=== PATIENT | male | born 1955 | race Caucasian/White ===

== ENCOUNTER 2020-12-21 11:40 | Inpatient (IN) ==
[2020-12-21] MEDS ORDERED: Ampicillin/Sulbactam 3,000 MG in 0.9 % Sodium Chloride Mini Bag 100 ML IVPB ONE (12:32)
[2020-12-21 13:18] LABS: Basophils % 0.6 %; Eosinophils # 0.4 K/mcL (0.0-0.6); Eosinophils % 5.3 %; Hematocrit 33.9 % (37.5-50.1); Hemoglobin 11.6 g/dL (12.9-16.9); Immature Granulocytes % 0.3 % (0-4); Lymphocytes # 1.1 K/mcL (0.6-4.6); Lymphocytes % 16.2 %; Mean Corpuscular HGB Conc 34.2 g/dL (31.6-35.5); Mean Corpuscular Volume 90.6 fL (83.0-100.0); Mean Platelet Volume 11.7 fL (9.4-12.4); Monocytes # 0.8 K/mcL (0.0-1.3); Monocytes % 11.8 %; Neutrophils # 4.5 K/mcL (1.6-8.9); Platelet Count 153 K/mcL (140-400); Red Blood Count 3.74 M/mcL (4.19-5.50); Red Cell Distribution Width 13.8 % (11.5-14.5); Segmented Neutrophils % 65.8 %; White Blood Count 6.8 K/mcL (4.3-11.1)
[2020-12-21 13:28] LABS: INR 1.3; Prothrombin Time 14.1 Seconds (9.4-12.1)
[2020-12-21 13:31] LABS: Activated Partial Thrombo Time 39.3 Seconds (26.0-36.0)
[2020-12-21 13:45] LABS: BUN/Creatinine Ratio 14 (6-26); Blood Urea Nitrogen 10 mg/dL (8-23); C-Reactive Protein 63 mg/L (Less than 10); Calcium 8.8 mg/dL (8.6-10.3); Carbon Dioxide 22 mEq/L (23-29); Chloride 101 mEq/L (98-107); Glucose 111 mg/dL (70-105); Osmolality,Calculated 278 (280-300); Sodium 134 mEq/L (136-145); eGFR For African Americans > 60 (> 60); eGFR For Non-African Americans > 60 (> 60)
[2020-12-21] MEDS ORDERED: Ondansetron 4 MG/2 ML VIAL IVP PRN (14:23)
[2020-12-21] MEDS ORDERED: Naloxone 0.4 MG/ML INJ IVP PRN (14:23)
[2020-12-21] MEDS ORDERED: *HR* Dextrose 50 % in Water (Syg) 50 ML SYRINGE IVP PRN (14:25)
[2020-12-21] MEDS ORDERED: Dextrose Gel 15 GM/37.5 ML TUBE PO PRN ×2 (14:25)
[2020-12-21] MEDS ORDERED: D5% in Water 1,000 ML IVC PRN (14:25)
[2020-12-21] MEDS ORDERED: 0.9 % Sodium Chloride 1,000 ML IVC SCH (14:30)
[2020-12-21] MEDS: Insulin LISPRO 300 UNITS/3 ML VIAL SUBQ SCH (17:09)
[2020-12-21] MEDS: Ampicillin/Sulbactam 3,000 MG in 0.9 % Sodium Chloride Mini Bag 100 ML IVPB SCH ×2 (17:09→23:59)
[2020-12-21] MEDS ORDERED: Insulin LISPRO 300 UNITS/3 ML VIAL SUBQ SCH (21:00)
[2020-12-21] MEDS: Melatonin 3 MG TABLET PO SCH (21:17)
[2020-12-21] MEDS: Spironolactone 12.5 MG TABLET PO SCH (21:17)
[2020-12-21] MEDS: *HR* Heparin 5,000 UNIT/ML VIAL SQ SCH (21:17)
[2020-12-21] MEDS: *HR* HYDROcodone/Acet 5/325 mg TABLET PO PRN (21:17)
[2020-12-22 05:26] LABS: Basophils # 0.1 K/mcL (0.0-0.2); Eosinophils # 0.4 K/mcL (0.0-0.6); Eosinophils % 7.8 %; Hematocrit 32.7 % (37.5-50.1); Hemoglobin 10.9 g/dL (12.9-16.9); Immature Granulocytes % 0.2 % (0-4); Lymphocytes # 1.2 K/mcL (0.6-4.6); Lymphocytes % 23.2 %; Mean Corpuscular HGB Conc 33.3 g/dL (31.6-35.5); Mean Corpuscular Hemoglobin 31.2 pg (28.0-33.3); Mean Corpuscular Volume 93.7 fL (83.0-100.0); Mean Platelet Volume 11.5 fL (9.4-12.4); Monocytes # 0.7 K/mcL (0.0-1.3); Monocytes % 12.9 %; Neutrophils # 2.8 K/mcL (1.6-8.9); Platelet Count 140 K/mcL (140-400); Red Blood Count 3.49 M/mcL (4.19-5.50); Red Cell Distribution Width 13.9 % (11.5-14.5); Segmented Neutrophils % 54.9 %; White Blood Count 5.1 K/mcL (4.3-11.1)
[2020-12-22] MEDS: Ampicillin/Sulbactam 3,000 MG in 0.9 % Sodium Chloride Mini Bag 100 ML IVPB SCH ×4 (05:45→23:15)
[2020-12-22] MEDS: *HR* Heparin 5,000 UNIT/ML VIAL SQ SCH ×3 (05:46→22:12)
[2020-12-22 05:48] LABS: Alanine Aminotransferase 22 Units/L (7-52); Albumin 2.9 g/dL (3.5-5.7); Albumin/Globulin Ratio 0.9 (1.1-2.2); Alkaline Phosphatase 128 Units/L (34-104); Aspartate Amino Transferase 41 Units/L (13-39); BUN/Creatinine Ratio 17 (6-26); Bilirubin,Total 1.9 mg/dL (0.3-1.0); Blood Urea Nitrogen 12 mg/dL (8-23); Calcium 8.3 mg/dL (8.6-10.3); Carbon Dioxide 24 mEq/L (23-29); Chloride 105 mEq/L (98-107); Globulin 3.2 g/dL (2.4-3.5); Glucose 61 mg/dL (70-105); Osmolality,Calculated 280 (280-300); Potassium 3.6 mEq/L (3.5-5.1); Sodium 136 mEq/L (136-145); Total Protein 6.1 g/dL (6.4-8.9); eGFR For African Americans > 60 (> 60); eGFR For Non-African Americans > 60 (> 60)
[2020-12-22] MEDS: Insulin LISPRO 300 UNITS/3 ML VIAL SUBQ SCH (08:53)
[2020-12-22] MEDS: Spironolactone 12.5 MG TABLET PO SCH ×2 (08:53→22:12)
[2020-12-22] MEDS: Cholecalciferol (D-3) 1,000 UNIT (25MCG) TABLET PO SCH (08:53)
[2020-12-22] MEDS ORDERED: *HR* LORazepam 2 MG/ML VIAL IVP PRN ×3 (09:28)
[2020-12-22] MEDS ORDERED: Ondansetron 4 MG/2 ML VIAL ONE (12:17)
[2020-12-22] MEDS ORDERED: Lidocaine -MPF 2% 5 ML VIAL ONE (12:17)
[2020-12-22] MEDS ORDERED: *HR* FentaNYL (PF) 100 MCG/2 ML VIAL ONE (12:17)
[2020-12-22] MEDS ORDERED: *HR* Midazolam HCl 2 MG/2 ML VIAL ONE (12:18)
[2020-12-22] MEDS ORDERED: *HR* Propofol 200 MG/20 ML VIAL IVP ONE (12:18)
[2020-12-22] MEDS ORDERED: Lidocaine/EPI 1:100k 1% 20 ML VIAL ONE (13:26)
[2020-12-22] MEDS ORDERED: Ethanol\\Acetic Acid\\Na Ace\\Ben 1,000 ML IRRIG.SOLN IR ONE (13:27)
[2020-12-22] MEDS ORDERED: Ringers Solution, Lactated 1,000 ML IVC SCH (13:45)
[2020-12-22] MEDS ORDERED: Ondansetron 4 MG/2 ML VIAL IVP PRN (15:29)
[2020-12-22] MEDS ORDERED: *HR* HYDROmorphone PF 0.5 MG/0.5 ML SYRINGE IVP PRN (15:29)
[2020-12-22] MEDS ORDERED: *HR* OxyCODONE Immed Rel 5 MG TABLET PO PRN (15:29)
[2020-12-22] MEDS: Thiamine (B-1) 100 MG, Folic Acid 1 MG, MVI, adult with vitamin K 10 ML in 0.9 % Sodi... IVPB SCH (17:17)
[2020-12-22] MEDS: *HR* HYDROcodone/Acet 5/325 mg TABLET PO PRN (18:17)
[2020-12-22] MEDS: Melatonin 3 MG TABLET PO SCH (22:12)
[2020-12-23] MEDS: *HR* HYDROcodone/Acet 5/325 mg TABLET PO PRN ×3 (00:20→22:40)
[2020-12-23 03:47] LABS: Alanine Aminotransferase 19 Units/L (7-52); Albumin 2.9 g/dL (3.5-5.7); Albumin/Globulin Ratio 0.9 (1.1-2.2); Alkaline Phosphatase 119 Units/L (34-104); Aspartate Amino Transferase 36 Units/L (13-39); BUN/Creatinine Ratio 26 (6-26); Bilirubin,Total 1.7 mg/dL (0.3-1.0); Blood Urea Nitrogen 23 mg/dL (8-23); Calcium 8.1 mg/dL (8.6-10.3); Carbon Dioxide 22 mEq/L (23-29); Chloride 101 mEq/L (98-107); Globulin 3.3 g/dL (2.4-3.5); Glucose 312 mg/dL (70-105); Magnesium 1.2 mg/dL (1.6-2.6); Osmolality,Calculated 286 (280-300); Potassium 4.8 mEq/L (3.5-5.1); Sodium 130 mEq/L (136-145); Total Protein 6.2 g/dL (6.4-8.9); eGFR For African Americans > 60 (> 60); eGFR For Non-African Americans > 60 (> 60)
[2020-12-23] MEDS: *HR* Heparin 5,000 UNIT/ML VIAL SQ SCH ×3 (05:59→22:42)
[2020-12-23] MEDS: Ampicillin/Sulbactam 3,000 MG in 0.9 % Sodium Chloride Mini Bag 100 ML IVPB SCH ×3 (05:59→16:03)
[2020-12-23] MEDS: Magnesium Oxide 400 MG TABLET PO SCH (09:26)
[2020-12-23] MEDS: Cholecalciferol (D-3) 1,000 UNIT (25MCG) TABLET PO SCH (09:26)
[2020-12-23] MEDS: Spironolactone 12.5 MG TABLET PO SCH ×2 (09:26→22:41)
[2020-12-23] MEDS: Insulin DETEMIR 100 UNIT/ML X5UNITS SUBQ SCH ×2 (09:27→22:50)
[2020-12-23] MEDS: MetroNIDAZOLE 500 MG/100 ML 500 MG/100 ML BAG IVPB SCH (18:51)
[2020-12-23] MEDS: Thiamine (B-1) 100 MG, Folic Acid 1 MG, MVI, adult with vitamin K 10 ML in 0.9 % Sodi... IVPB SCH (19:41)
[2020-12-23] MEDS: Melatonin 3 MG TABLET PO SCH (22:41)
[2020-12-24] MEDS: Ampicillin/Sulbactam 3,000 MG in 0.9 % Sodium Chloride Mini Bag 100 ML IVPB SCH ×4 (02:13→16:48)
[2020-12-24] MEDS: MetroNIDAZOLE 500 MG/100 ML 500 MG/100 ML BAG IVPB SCH ×3 (02:14→15:26)
[2020-12-24 05:27] LABS: Alanine Aminotransferase 19 Units/L (7-52); Albumin 3.2 g/dL (3.5-5.7); Alkaline Phosphatase 115 Units/L (34-104); Aspartate Amino Transferase 34 Units/L (13-39); BUN/Creatinine Ratio 26 (6-26); Bilirubin,Total 1.3 mg/dL (0.3-1.0); Blood Urea Nitrogen 23 mg/dL (8-23); Calcium 8.8 mg/dL (8.6-10.3); Carbon Dioxide 23 mEq/L (23-29); Chloride 105 mEq/L (98-107); Globulin 3.2 g/dL (2.4-3.5); Glucose 53 mg/dL (70-105); Magnesium 1.4 mg/dL (1.6-2.6); Osmolality,Calculated 281 (280-300); Potassium 3.9 mEq/L (3.5-5.1); Sodium 135 mEq/L (136-145); Total Protein 6.4 g/dL (6.4-8.9); eGFR For African Americans > 60 (> 60); eGFR For Non-African Americans > 60 (> 60)
[2020-12-24] MEDS: *HR* Heparin 5,000 UNIT/ML VIAL SQ SCH ×3 (06:21→22:10)
[2020-12-24 06:31] LABS: Basophils % 0.5 %; Eosinophils # 0.2 K/mcL (0.0-0.6); Hematocrit 31.3 % (37.5-50.1); Hemoglobin 10.5 g/dL (12.9-16.9); Immature Granulocytes % 0.5 % (0-4); Lymphocytes # 1.5 K/mcL (0.6-4.6); Lymphocytes % 26.3 %; Mean Corpuscular HGB Conc 33.5 g/dL (31.6-35.5); Mean Corpuscular Hemoglobin 31.2 pg (28.0-33.3); Mean Corpuscular Volume 92.9 fL (83.0-100.0); Mean Platelet Volume 10.1 fL (9.4-12.4); Monocytes # 0.6 K/mcL (0.0-1.3); Monocytes % 10.6 %; Neutrophils # 3.4 K/mcL (1.6-8.9); Platelet Count 154 K/mcL (140-400); Red Blood Count 3.37 M/mcL (4.19-5.50); Red Cell Distribution Width 13.9 % (11.5-14.5); Segmented Neutrophils % 59.1 %; White Blood Count 5.7 K/mcL (4.3-11.1)
[2020-12-24] MEDS: Spironolactone 12.5 MG TABLET PO SCH ×2 (08:11→22:09)
[2020-12-24] MEDS: Insulin DETEMIR 100 UNIT/ML X5UNITS SUBQ SCH ×2 (08:11→22:10)
[2020-12-24] MEDS: Magnesium Oxide 400 MG TABLET PO SCH (08:12)
[2020-12-24] MEDS: Cholecalciferol (D-3) 1,000 UNIT (25MCG) TABLET PO SCH (08:12)
[2020-12-24] MEDS: *HR* HYDROcodone/Acet 5/325 mg TABLET PO PRN ×3 (08:34→22:18)
[2020-12-24] MEDS: Thiamine (B-1) 100 MG, Folic Acid 1 MG, MVI, adult with vitamin K 10 ML in 0.9 % Sodi... IVPB SCH (18:52)
[2020-12-24] MEDS: Melatonin 3 MG TABLET PO SCH (22:09)
[2020-12-25] MEDS: MetroNIDAZOLE 500 MG/100 ML 500 MG/100 ML BAG IVPB SCH ×4 (00:53→21:57)
[2020-12-25] MEDS: Ampicillin/Sulbactam 3,000 MG in 0.9 % Sodium Chloride Mini Bag 100 ML IVPB SCH ×5 (00:53→23:15)
[2020-12-25 04:21] LABS: Basophils % 0.6 %; Eosinophils # 0.3 K/mcL (0.0-0.6); Eosinophils % 5.1 %; Hematocrit 31.7 % (37.5-50.1); Hemoglobin 10.4 g/dL (12.9-16.9); Immature Granulocytes % 0.4 % (0-4); Lymphocytes # 1.5 K/mcL (0.6-4.6); Lymphocytes % 27.9 %; Mean Corpuscular HGB Conc 32.8 g/dL (31.6-35.5); Mean Corpuscular Hemoglobin 30.6 pg (28.0-33.3); Mean Corpuscular Volume 93.2 fL (83.0-100.0); Mean Platelet Volume 10.4 fL (9.4-12.4); Monocytes # 0.6 K/mcL (0.0-1.3); Neutrophils # 2.9 K/mcL (1.6-8.9); Platelet Count 170 K/mcL (140-400); Red Cell Distribution Width 14.1 % (11.5-14.5); White Blood Count 5.3 K/mcL (4.3-11.1)
[2020-12-25 05:26] LABS: Alanine Aminotransferase 24 Units/L (7-52); Albumin 3.1 g/dL (3.5-5.7); Albumin/Globulin Ratio 0.9 (1.1-2.2); Alkaline Phosphatase 117 Units/L (34-104); Aspartate Amino Transferase 45 Units/L (13-39); BUN/Creatinine Ratio 24 (6-26); Bilirubin,Total 1.3 mg/dL (0.3-1.0); Blood Urea Nitrogen 18 mg/dL (8-23); Calcium 8.9 mg/dL (8.6-10.3); Carbon Dioxide 25 mEq/L (23-29); Chloride 105 mEq/L (98-107); Globulin 3.3 g/dL (2.4-3.5); Glucose 62 mg/dL (70-105); Magnesium 1.3 mg/dL (1.6-2.6); Osmolality,Calculated 286 (280-300); Potassium 4.1 mEq/L (3.5-5.1); Sodium 138 mEq/L (136-145); Total Protein 6.4 g/dL (6.4-8.9); eGFR For African Americans > 60 (> 60); eGFR For Non-African Americans > 60 (> 60)
[2020-12-25] MEDS: *HR* HYDROcodone/Acet 5/325 mg TABLET PO PRN ×3 (06:17→22:03)
[2020-12-25] MEDS: *HR* Heparin 5,000 UNIT/ML VIAL SQ SCH ×3 (06:18→21:57)
[2020-12-25] MEDS: Cholecalciferol (D-3) 1,000 UNIT (25MCG) TABLET PO SCH (09:57)
[2020-12-25] MEDS: Magnesium Oxide 400 MG TABLET PO SCH (09:57)
[2020-12-25] MEDS: Spironolactone 12.5 MG TABLET PO SCH ×2 (09:58→21:56)
[2020-12-25] MEDS: Insulin DETEMIR 100 UNIT/ML X5UNITS SUBQ SCH ×2 (10:00→21:57)
[2020-12-25] MEDS: Melatonin 3 MG TABLET PO SCH (21:56)
[2020-12-26] MEDS: MetroNIDAZOLE 500 MG/100 ML 500 MG/100 ML BAG IVPB SCH ×2 (04:50→12:49)
[2020-12-26 06:06] LABS: Alanine Aminotransferase 20 Units/L (7-52); Albumin 2.9 g/dL (3.5-5.7); Alkaline Phosphatase 106 Units/L (34-104); Aspartate Amino Transferase 37 Units/L (13-39); BUN/Creatinine Ratio 31 (6-26); Bilirubin,Total 1.2 mg/dL (0.3-1.0); Blood Urea Nitrogen 27 mg/dL (8-23); Carbon Dioxide 25 mEq/L (23-29); Chloride 103 mEq/L (98-107); Globulin 2.8 g/dL (2.4-3.5); Glucose 178 mg/dL (70-105); Magnesium 1.3 mg/dL (1.6-2.6); Osmolality,Calculated 286 (280-300); Potassium 4.8 mEq/L (3.5-5.1); Sodium 133 mEq/L (136-145); Total Protein 5.7 g/dL (6.4-8.9); eGFR For African Americans > 60 (> 60); eGFR For Non-African Americans > 60 (> 60)
[2020-12-26] MEDS: Ampicillin/Sulbactam 3,000 MG in 0.9 % Sodium Chloride Mini Bag 100 ML IVPB SCH ×2 (06:39→12:43)
[2020-12-26] MEDS: *HR* Heparin 5,000 UNIT/ML VIAL SQ SCH ×2 (06:40→15:22)
[2020-12-26] MEDS: *HR* HYDROcodone/Acet 5/325 mg TABLET PO PRN (07:09)
[2020-12-26 07:56] VITALS: O2SAT 96
[2020-12-26] MEDS: Spironolactone 12.5 MG TABLET PO SCH (08:51)
[2020-12-26] MEDS: Cholecalciferol (D-3) 1,000 UNIT (25MCG) TABLET PO SCH (08:51)
[2020-12-26] MEDS: Insulin DETEMIR 100 UNIT/ML X5UNITS SUBQ SCH (08:53)
[2020-12-26] MEDS: Magnesium Oxide 400 MG TABLET PO SCH (10:52)
[2020-12-26 11:25] VITALS: BP 128/74; PULSE 64; TEMP 98.4
== END 2020-12-26 16:40 | disposition home health service (06) | DRG 580 ==
LOC: 4WAOSI 11:40 → EMEROOARM 11:40 → SUATTDRO 14:29 → 4WAOSI 16:21 → 3NENU 12-25 10:10
PROVIDERS: ADMIT Family Medicine; ATTEND Internal Medicine

== ENCOUNTER 2021-09-28 12:06 | Inpatient (IN) ==
[2021-09-28] MEDS ORDERED: *HR* Propofol 200 MG/20 ML VIAL IVP ONE (12:17)
[2021-09-28] MEDS ORDERED: *HR* Rocuronium Bromide 50 MG/5 ML VIAL ONE ×3 (12:17→15:24)
[2021-09-28] MEDS ORDERED: Ondansetron 4 MG/2 ML VIAL ONE (12:17)
[2021-09-28] MEDS ORDERED: *HR* FentaNYL (PF) 100 MCG/2 ML VIAL ONE ×2 (12:17→14:32)
[2021-09-28] MEDS ORDERED: Lidocaine -MPF 2% 5 ML VIAL ONE (12:17)
[2021-09-28] MEDS ORDERED: CeFAZolin Syr 2,000MG/20 ML 2,000 MG/20 ML SYRINGE IVPB ONE (12:22)
[2021-09-28] MEDS ORDERED: Ringers Solution, Lactated 1,000 ML IVC SCH ×2 (12:30→17:56)
[2021-09-28] MEDS ORDERED: Lidocaine HCL 4 ML Topical Solution (Laryng-O-Jet Kit Sterile Pak) TP ONE (13:51)
[2021-09-28] MEDS ORDERED: EPHEDrine 50 MG/ML VIAL ONE (14:11)
[2021-09-28] MEDS ORDERED: Sugammadex Sodium 200 MG/2 ML VIAL IV ONE ×2 (15:46→15:58)
[2021-09-28] MEDS ORDERED: *HR* HYDROMORPHONE 2 MG/ML VIAL ONE (16:16)
[2021-09-28] MEDS: *HR* FentaNYL (PF) 100 MCG/2 ML VIAL IVP PRN ×4 (16:29→16:47)
[2021-09-28] MEDS: *HR* HYDROmorphone (PF) 1 MG/ML SYRINGE IVP PRN ×4 (16:51→17:28)
[2021-09-28] MEDS ORDERED: Acetaminophen IV 1,000 MG/100 ML BAG IVPB ONE ×2 (17:16→17:21)
[2021-09-28] MEDS ORDERED: polyethylene glycoL 3350 17 GM POWD.PACK PO PRN (17:56)
[2021-09-28] MEDS: Spironolactone 12.5 MG TABLET PO SCH (20:57)
[2021-09-28] MEDS: Melatonin 3 MG TABLET PO SCH (20:57)
[2021-09-28] MEDS: Famotidine 20 MG TABLET PO SCH (20:58)
[2021-09-28] MEDS ORDERED: NON-FORMULARY MEDICATION 1 EACH EACH (Insulin Glargine,Hum.Rec.Anlog [Lantus Solostar] 100 SQ SCH (21:00)
[2021-09-29] MEDS: *HR* Heparin 5,000 UNIT/ML VIAL SQ SCH ×4 (00:13→23:45)
[2021-09-29] MEDS: *HR* HYDROcodone/Acet 5/325 mg TABLET PO PRN ×2 (00:26→08:12)
[2021-09-29 04:44] LABS: Basophils % 0.2 %; Hematocrit 24.8 % (37.5-50.1); Hemoglobin 7.5 g/dL (12.9-16.9); Immature Granulocytes % 0.2 % (0-4); Lymphocytes # 0.5 K/mcL (0.6-4.6); Lymphocytes % 10.3 %; Mean Corpuscular HGB Conc 30.2 g/dL (31.6-35.5); Mean Corpuscular Hemoglobin 26.3 pg (28.0-33.3); Mean Platelet Volume 11.1 fL (9.4-12.4); Monocytes # 0.5 K/mcL (0.0-1.3); Monocytes % 10.5 %; Neutrophils # 3.8 K/mcL (1.6-8.9); Platelet Count 141 K/mcL (140-400); Red Blood Count 2.85 M/mcL (4.19-5.50); Red Cell Distribution Width 14.8 % (11.5-14.5); Segmented Neutrophils % 78.8 %; White Blood Count 4.9 K/mcL (4.3-11.1)
[2021-09-29] MEDS: Multivit/Ca/Min/Fe/FA 1 TAB TABLET PO SCH (08:12)
[2021-09-29] MEDS: *HR* Metformin 500 MG TABLET PO SCH ×2 (08:12→17:06)
[2021-09-29] MEDS: Aspirin Enteric Coated 81 MG Tablet PO SCH (08:13)
[2021-09-29] MEDS: Magnesium Oxide 400 MG TABLET PO SCH (08:13)
[2021-09-29] MEDS: Famotidine 20 MG TABLET PO SCH ×2 (08:13→23:41)
[2021-09-29] MEDS: Spironolactone 12.5 MG TABLET PO SCH ×2 (08:13→23:41)
[2021-09-29] MEDS ORDERED: D5% in Water 1,000 ML IVC PRN (08:24)
[2021-09-29] MEDS ORDERED: Dextrose Gel 15 GM/37.5 ML TUBE PO PRN ×2 (08:24)
[2021-09-29] MEDS ORDERED: *HR* Dextrose 50 % in Water (Syg) 50 ML SYRINGE IVP PRN (08:24)
[2021-09-29] MEDS: Insulin LISPRO 300 UNITS/3 ML VIAL SUBQ SCH ×3 (09:14→17:07)
[2021-09-29] MEDS ORDERED: *HR* LORazepam 1 MG TABLET PO PRN (09:33)
[2021-09-29 09:50] LABS: BUN/Creatinine Ratio 20 (6-26); Blood Urea Nitrogen 16 mg/dL (8-23); Calcium 8.1 mg/dL (8.6-10.3); Carbon Dioxide 25 mEq/L (23-29); Chloride 103 mEq/L (98-107); Glucose 175 mg/dL (70-105); Osmolality,Calculated 285 (280-300); Phosphorous 4.3 mg/dL (2.7-4.5); Potassium 4.1 mEq/L (3.5-5.1); Sodium 135 mEq/L (136-145); eGFR For African Americans > 60 (> 60); eGFR For Non-African Americans > 60 (> 60)
[2021-09-29 09:51] LABS: % Iron Saturation 15 % (20-55); Iron 58 mcg/dL (65-175); Transferrin 277 mg/dL (203-362)
[2021-09-29] MEDS: Gabapentin 300 MG CAPSULE PO SCH ×3 (10:34→23:41)
[2021-09-29] MEDS: Iron Sucrose Complex 400 MG in 0.9 % Sodium Chloride 250 ML IVPB SCH (12:39)
[2021-09-29] MEDS: *HR* OxyCODONE Immed Rel 5 MG TABLET PO PRN ×2 (14:48→20:42)
[2021-09-29] MEDS: Melatonin 3 MG TABLET PO SCH (23:40)
[2021-09-30 01:41] LABS: Basophils % 0.4 %; Eosinophils # 0.1 K/mcL (0.0-0.6); Eosinophils % 0.9 %; Hematocrit 25.2 % (37.5-50.1); Hemoglobin 7.9 g/dL (12.9-16.9); Immature Granulocytes % 0.4 % (0-4); Lymphocytes # 1.2 K/mcL (0.6-4.6); Lymphocytes % 15.6 %; Mean Corpuscular HGB Conc 31.3 g/dL (31.6-35.5); Mean Platelet Volume 10.7 fL (9.4-12.4); Monocytes % 13.2 %; Neutrophils # 5.3 K/mcL (1.6-8.9); Platelet Count 173 K/mcL (140-400); Red Blood Count 2.93 M/mcL (4.19-5.50); Red Cell Distribution Width 14.8 % (11.5-14.5); Segmented Neutrophils % 69.5 %
[2021-09-30] MEDS: *HR* OxyCODONE Immed Rel 5 MG TABLET PO PRN ×4 (01:55→21:27)
[2021-09-30 02:01] LABS: White Blood Count 7.6 K/mcL (4.3-11.1)
[2021-09-30 02:04] LABS: BUN/Creatinine Ratio 23 (6-26); Blood Urea Nitrogen 20 mg/dL (8-23); Calcium 8.3 mg/dL (8.6-10.3); Carbon Dioxide 23 mEq/L (23-29); Chloride 102 mEq/L (98-107); Glucose 164 mg/dL (70-105); Osmolality,Calculated 282 (280-300); Potassium 3.9 mEq/L (3.5-5.1); Sodium 133 mEq/L (136-145); eGFR For African Americans > 60 (> 60); eGFR For Non-African Americans > 60 (> 60)
[2021-09-30] MEDS: Insulin LISPRO 300 UNITS/3 ML VIAL SUBQ SCH ×5 (05:58→21:19)
[2021-09-30] MEDS: Spironolactone 12.5 MG TABLET PO SCH ×2 (09:13→21:31)
[2021-09-30] MEDS: Magnesium Oxide 400 MG TABLET PO SCH (09:13)
[2021-09-30] MEDS: Aspirin Enteric Coated 81 MG Tablet PO SCH (09:13)
[2021-09-30] MEDS: *HR* Heparin 5,000 UNIT/ML VIAL SQ SCH ×2 (09:13→15:59)
[2021-09-30] MEDS: Famotidine 20 MG TABLET PO SCH ×2 (09:14→21:30)
[2021-09-30] MEDS: Multivit/Ca/Min/Fe/FA 1 TAB TABLET PO SCH (09:14)
[2021-09-30] MEDS: *HR* Metformin 500 MG TABLET PO SCH ×2 (09:14→15:58)
[2021-09-30] MEDS: Gabapentin 300 MG CAPSULE PO SCH ×3 (09:17→21:30)
[2021-09-30] MEDS: Iron Sucrose Complex 400 MG in 0.9 % Sodium Chloride 250 ML IVPB SCH (11:57)
[2021-09-30] MEDS ORDERED: Furosemide 40 MG/4 ML VIAL IVP ONE (12:24)
[2021-09-30] MEDS: Melatonin 3 MG TABLET PO SCH (21:28)
[2021-10-01] MEDS: *HR* Heparin 5,000 UNIT/ML VIAL SQ SCH ×3 (00:14→16:29)
[2021-10-01] MEDS: *HR* OxyCODONE Immed Rel 5 MG TABLET PO PRN ×4 (05:05→22:01)
[2021-10-01 07:22] LABS: Basophils % 0.5 %; Eosinophils # 0.1 K/mcL (0.0-0.6); Eosinophils % 2.3 %; Hematocrit 22.9 % (37.5-50.1); Hemoglobin 7.1 g/dL (12.9-16.9); Immature Granulocytes % 0.8 % (0-4); Lymphocytes # 0.7 K/mcL (0.6-4.6); Lymphocytes % 17.8 %; Mean Corpuscular Hemoglobin 26.3 pg (28.0-33.3); Mean Corpuscular Volume 84.8 fL (83.0-100.0); Mean Platelet Volume 11.4 fL (9.4-12.4); Monocytes # 0.7 K/mcL (0.0-1.3); Monocytes % 16.8 %; Neutrophils # 2.5 K/mcL (1.6-8.9); Platelet Count 139 K/mcL (140-400); Segmented Neutrophils % 61.8 %
[2021-10-01 07:44] LABS: BUN/Creatinine Ratio 22 (6-26); Blood Urea Nitrogen 18 mg/dL (8-23); Calcium 8.1 mg/dL (8.6-10.3); Carbon Dioxide 28 mEq/L (23-29); Chloride 102 mEq/L (98-107); Glucose 119 mg/dL (70-105); Magnesium 1.2 mg/dL (1.6-2.6); Osmolality,Calculated 283 (280-300); Potassium 4.1 mEq/L (3.5-5.1); Sodium 135 mEq/L (136-145); eGFR For African Americans > 60 (> 60); eGFR For Non-African Americans > 60 (> 60)
[2021-10-01] MEDS: Insulin LISPRO 300 UNITS/3 ML VIAL SUBQ SCH ×4 (09:27→22:01)
[2021-10-01] MEDS: Magnesium Oxide 400 MG TABLET PO SCH (09:35)
[2021-10-01] MEDS: *HR* Metformin 500 MG TABLET PO SCH ×2 (09:35→16:29)
[2021-10-01] MEDS: Famotidine 20 MG TABLET PO SCH ×2 (09:35→22:09)
[2021-10-01] MEDS: Spironolactone 12.5 MG TABLET PO SCH ×2 (09:36→22:07)
[2021-10-01] MEDS: Multivit/Ca/Min/Fe/FA 1 TAB TABLET PO SCH (09:36)
[2021-10-01] MEDS: Furosemide 40 MG/4 ML VIAL IVP SCH ×2 (09:36→22:10)
[2021-10-01] MEDS: Aspirin Enteric Coated 81 MG Tablet PO SCH (09:36)
[2021-10-01] MEDS: Iron Sucrose Complex 400 MG in 0.9 % Sodium Chloride 250 ML IVPB SCH (11:09)
[2021-10-01] MEDS: Melatonin 3 MG TABLET PO SCH (22:05)
[2021-10-02] MEDS: *HR* Heparin 5,000 UNIT/ML VIAL SQ SCH ×2 (01:24→09:02)
[2021-10-02] MEDS: Insulin LISPRO 300 UNITS/3 ML VIAL SUBQ SCH ×2 (07:31→11:49)
[2021-10-02 07:59] LABS: Hematocrit 23.9 % (37.5-50.1); Hemoglobin 7.5 g/dL (12.9-16.9)
[2021-10-02 08:20] LABS: BUN/Creatinine Ratio 18 (6-26); Blood Urea Nitrogen 14 mg/dL (8-23); Calcium 8.4 mg/dL (8.6-10.3); Carbon Dioxide 28 mEq/L (23-29); Chloride 100 mEq/L (98-107); Glucose 124 mg/dL (70-105); Osmolality,Calculated 280 (280-300); Potassium 3.6 mEq/L (3.5-5.1); Sodium 134 mEq/L (136-145); eGFR For African Americans > 60 (> 60); eGFR For Non-African Americans > 60 (> 60)
[2021-10-02] MEDS: Furosemide 40 MG/4 ML VIAL IVP SCH (09:03)
[2021-10-02] MEDS: Magnesium Oxide 400 MG TABLET PO SCH (09:05)
[2021-10-02] MEDS: Famotidine 20 MG TABLET PO SCH (09:05)
[2021-10-02] MEDS: Multivit/Ca/Min/Fe/FA 1 TAB TABLET PO SCH (09:06)
[2021-10-02] MEDS: Spironolactone 12.5 MG TABLET PO SCH (09:06)
[2021-10-02] MEDS: Aspirin Enteric Coated 81 MG Tablet PO SCH (09:06)
[2021-10-02] MEDS: *HR* Metformin 500 MG TABLET PO SCH (09:07)
[2021-10-02] MEDS: *HR* OxyCODONE Immed Rel 5 MG TABLET PO PRN (09:16)
[2021-10-02] MEDS ORDERED: polyethylene glycoL 3350 17 GM POWD.PACK PO SCH (10:07)
[2021-10-02 10:33] VITALS: BP 128/55; PULSE 64; TEMP 98.3; O2SAT 94
[2021-10-03] MEDS ORDERED: Ergocalciferol (VIT D2) 50,000 UNIT (1.25MG) CAP PO SCH (12:00)
== END 2021-10-02 15:28 | disposition home health service (06) | DRG 352 ==
LOC: SAMDAY 12:06 → 3ANU 17:48 → SUATTDRO 18:15 → 3ANU 18:15
PROVIDERS: ADMIT Surgery; ATTEND Internal Medicine